=== PATIENT | female | born 1960 | race Caucasian/White ===

== ENCOUNTER 2016-11-08 00:29 | Emergency (ER) | payer MEDICAID ==
[~2016-11-08] VITALS: Ht 152.4 cm; Wt 37.3 kg
[~2016-11-08 00:29] MED LIST: BENA20 PO; FLUT1DIS3 IH; OLAN10TA3 PO; TRAZ-147 PO
[2016-11-08] MEDS ORDERED: AMLO-511 PO (00:40)
[2016-11-08] MEDS ORDERED: LISI-661 PO (00:40)
[2016-11-08] MEDS ORDERED: GABA-531 PO (00:40)
[2016-11-08] MEDS ORDERED: IPRAHFA IH (00:40)
[2016-11-08] MEDS ORDERED: FLUT1AER PO (00:40)
[2016-11-08 01:06] LABS: BASOPHILS % (AUTO) 0.4 % (0.0-2.0); EOSINOPHILS % (AUTO) 1.5 % (1.0-6.0); HEMATOCRIT 41.2 % (36-46); HEMOGLOBIN 13.3 g/dL (12.0-16.0); LYMPHOCYTES # (AUTO) 1.6 K/uL (1.0-4.8); LYMPHOCYTES % (AUTO) 19.2 % (22.0-44.0); MEAN CORPUSCULAR HEMOGLOBIN 30.6 pg (26.0-34.0); MEAN CORPUSCULAR HGB CONC 32.2 G/dL (31.0-37.0); MEAN CORPUSCULAR VOLUME 95 fL (80-100); MONOCYTES # (AUTO) 0.5 K/uL (0.1-1.0); NEUTROPHILS % (AUTO) 72.9 % (40.0-70.0); PLATELET COUNT (AUTO) 179 K/uL (150-450); RED BLOOD CELL COUNT(AUTO) 4.33 MIL/uL (4.00-5.20); RED CELL DISTRIBUTION WIDTH 14.1 % (11.5-14.5); WHITE BLOOD COUNT (AUTO) 8.3 K/uL (4.5-11.0)
[2016-11-08 01:16] LABS: ANION GAP 6 mmol/L (8-16); CARBON DIOXIDE 29 mmol/L (22-29); CHLORIDE 102 mmol/L (98-107); CREATININE 1.04 mg/dL (0.60-1.30); GLOMERULAR FILTR. RATE CALC 55 mL/min (>60); POTASSIUM 4.3 mmol/L (3.5-5.1); SODIUM SERUM 137 mmol/L (136-145); UREA NITROGEN, BLOOD 14 mg/dL (7-18)
[2016-11-08 01:21] LABS: ALANINE AMINOTRANSFERASE 18 U/L (12-78); ALBUMIN 3.9 g/dL (3.4-5.0); ASPARTATE AMINOTRANSFERASE 20 U/L (15-37); BILIRUBIN,TOTAL 0.4 mg/dL (0.1-1.0); TOTAL PROTEIN, SERUM 7.2 g/dL (6.4-8.2)
[2016-11-08 01:35] LABS: APPEARANCE,URINE CLEAR (CLEAR); GLUCOSE, URINE (UA) NEGATIVE (NEGATIVE); KETONES,URINE NEGATIVE (NEGATIVE); LEUKOCYTE ESTERASE ,URINE NEGATIVE (NEGATIVE); OCCULT BLOOD,URINE NEGATIVE (NEGATIVE); PH,URINE 7.5 (5.0-8.0); PROTEIN,URINE TRACE (NEGATIVE)
[2016-11-08 01:39] LABS: ADD UA MICROSCOPIC NO
[2016-11-08 03:19] VITALS: BP 117/72
== END 2016-11-08 03:20 | disposition home or self-care (01) ==
LOC: EMS 00:31
DX: R10.9 Unspecified abdominal pain (principal); J45.909 Unspecified asthma, uncomplicated; J44.9 Chronic obstructive pulmonary disease, unspecified; I10 Essential (primary) hypertension; Z91.048 Other nonmedicinal substance allergy status
CPT/HCPCS: 36415; 80053; 80307; 81003; 83690; 85025; 99284; G0480

== ENCOUNTER 2017-10-01 12:35 | Emergency (ER) | payer MEDICAID ==
[~2017-10-01] VITALS: Ht 152.4 cm; Wt 86.4 kg
[~2017-10-01 12:35] MED LIST changes: +AMLO-511 PO; -BENA20 PO; +FLUT1AER PO; +GABA-531 PO; +IPRAHFA IH; +LISI-661 PO; -OLAN10TA3 PO; -TRAZ-147 PO
[2017-10-01] MEDS ORDERED: ARIP2 PO (14:33)
[2017-10-01 14:37] LABS: BASOPHILS % (AUTO) 0.6 % (0.0-2.0); EOSINOPHILS % (AUTO) 0.6 % (1.0-6.0); HEMOGLOBIN 12.9 g/dL (12.0-16.0); LYMPHOCYTES # (AUTO) 2.4 K/uL (1.0-4.8); LYMPHOCYTES % (AUTO) 20.4 % (22.0-44.0); MEAN CORPUSCULAR HEMOGLOBIN 31.1 pg (26.0-34.0); MEAN CORPUSCULAR HGB CONC 33.8 G/dL (31.0-37.0); MEAN CORPUSCULAR VOLUME 92 fL (80-100); MONOCYTES # (AUTO) 0.6 K/uL (0.1-1.0); MONOCYTES % (AUTO) 4.7 % (2.0-9.0); NEUTROPHILS # (AUTO) 8.8 K/uL (1.8-7.7); NEUTROPHILS % (AUTO) 73.7 % (40.0-70.0); PLATELET COUNT (AUTO) 229 K/uL (150-450); RED BLOOD CELL COUNT(AUTO) 4.13 MIL/uL (4.00-5.20); RED CELL DISTRIBUTION WIDTH 13.4 % (11.5-14.5)
[2017-10-01] MEDS ORDERED: PredniSONE 20 MG TABLET PO ONE (14:45)
[2017-10-01] MEDS ORDERED: IPRATROPIUM BROMIDE 0.5 MG/2.5 ML NEB SOLUTION NEB ONE ×2 (14:45→16:00)
[2017-10-01] MEDS ORDERED: ALBUTEROL SULFATE 2.5 MG/0.5 ML NEB SOLUTION NEB ONE ×2 (14:45→16:00)
[2017-10-01] MEDS ORDERED: ACETAMINOPHEN 325 MG TABLET PO ONE (14:45)
[2017-10-01 14:53] LABS: AMPHET/METH SCREEN,URINE NEGATIVE (NEGATIVE); BARBITURATE SCREEN, URINE NEGATIVE (NEGATIVE); BENZODIAZEPINES SCREEN,URINE NEGATIVE (NEGATIVE); CANNABINOID SCREEN,URINE NEGATIVE (NEGATIVE); COCAINE SCREEN,URINE NEGATIVE (NEGATIVE); METHADONE SCREEN, URINE NEGATIVE (NEGATIVE); OPIATE SCREEN,URINE NEGATIVE (NEGATIVE)
[2017-10-01 14:54] LABS: CREATININE 1.21 mg/dL (0.60-1.30); POTASSIUM 3.8 mmol/L (3.5-5.1)
[2017-10-01 14:55] LABS: PHENCYCLIDINE SCREEN,URINE NEGATIVE (NEGATIVE)
[2017-10-01 15:00] LABS: ALBUMIN 3.6 g/dL (3.4-5.0); BILIRUBIN,TOTAL 0.3 mg/dL (0.1-1.0); TOTAL PROTEIN, SERUM 7.6 g/dL (6.4-8.2)
[2017-10-01] MEDS ORDERED: HYDROCHLOROTHIAZIDE 25 MG TABLET PO ONE (15:00)
[2017-10-01] MEDS ORDERED: 0.9% SODIUM CHLORIDE 5 ML NEB SOLUTION NEB ONE ×2 (15:03→15:56)
[2017-10-01 15:40] VITALS: BP 118/72
== END 2017-10-01 17:44 | disposition left against medical advice (07) ==
LOC: EMS 12:40
DX: J44.1 Chronic obstructive pulmonary disease with (acute) exacerbation (principal); J45.909 Unspecified asthma, uncomplicated; I10 Essential (primary) hypertension
CPT/HCPCS: 36415; 71045; 80053; 80307; 83880; 84484; 85025; 93005; 94640; 99285; G0480; J7512; J7613

== ENCOUNTER 2017-11-24 16:40 | Emergency (ER) | payer MEDICAID ==
[~2017-11-24] VITALS: Ht 152.4 cm; Wt 40.9 kg
[~2017-11-24 16:40] MED LIST changes: -AMLO-511 PO; +ARIP2 PO; -FLUT1AER PO; -FLUT1DIS3 IH; -GABA-531 PO; -IPRAHFA IH; -LISI-661 PO
[2017-11-24] MEDS ORDERED: LISI-661 PO (16:51)
[2017-11-24] MEDS ORDERED: ALBU8.5H8 IH (16:51)
[2017-11-24] MEDS ORDERED: IPRAHFA IH (16:51)
[2017-11-24] MEDS ORDERED: ALBUTEROL SULFATE 2.5 MG/0.5 ML NEB SOLUTION NEB ONE ×2 (17:30→19:00)
[2017-11-24] MEDS ORDERED: MethylPREDNISolone SOD SUCC 125 MG/2 ML VIAL IM ONE (17:30)
[2017-11-24] MEDS ORDERED: 0.9% SODIUM CHLORIDE 5 ML NEB SOLUTION NEB ONE (19:15)
[2017-11-24 19:52] VITALS: BP 170/95
== END 2017-11-24 19:59 | disposition home or self-care (01) ==
LOC: EMS 16:42
DX: J44.9 Chronic obstructive pulmonary disease, unspecified (principal); F17.210 Nicotine dependence, cigarettes, uncomplicated; F20.9 Schizophrenia, unspecified; I10 Essential (primary) hypertension
CPT/HCPCS: 71046; 94640; 96372; 99284; 99406; J2930; J7613

== ENCOUNTER 2017-12-04 09:29 | Emergency (ER) | payer MEDICAID ==
[~2017-12-04] VITALS: Ht 152.4 cm; Wt 40.9 kg
[~2017-12-04 09:29] MED LIST changes: +ALBU8.5H8 IH; -ARIP2 PO; +IPRAHFA IH; +LISI-661 PO
[2017-12-04] MEDS ORDERED: ALBUTEROL SULFATE HFA 90 MCG/PUFF 8 GM INHALER IH ONE (10:30)
[2017-12-04 11:01] VITALS: BP 148/82
== END 2017-12-04 11:05 | disposition home or self-care (01) ==
LOC: EMS 09:30
DX: Z76.0 Encounter for issue of repeat prescription (principal); J45.909 Unspecified asthma, uncomplicated; J44.9 Chronic obstructive pulmonary disease, unspecified; I10 Essential (primary) hypertension; F17.210 Nicotine dependence, cigarettes, uncomplicated
CPT/HCPCS: 94640; 99283; 99406; J3535

== ENCOUNTER 2017-12-14 13:25 | Emergency (ER) | payer MEDICAID ==
[~2017-12-14] VITALS: Ht 152.4 cm; Wt 41.0 kg
[2017-12-14] MEDS ORDERED: SODIUM CHLORIDE 0.9% 1,000 ML IV ONE ×2 (14:11)
[2017-12-14] MEDS ORDERED: KETOROLAC TROMETHAMINE 30 MG/ML VIAL IVP ONE (14:15)
[2017-12-14] MEDS ORDERED: METOCLOPRAMIDE HCL 5 MG/ML 2 ML VIAL IVP ONE (14:15)
[2017-12-14] MEDS ORDERED: DiphenhydrAMINE HCL 50 MG/ML VIAL IVP ONE (14:15)
[2017-12-14] MEDS ORDERED: IBUPROFEN 600 MG TABLET PO ONE (14:45)
[2017-12-14] MEDS ORDERED: LISINOPRIL 10 MG TABLET PO ONE (14:45)
[2017-12-14] MEDS ORDERED: CloNIDine HCL 0.1 MG TABLET PO ONE (14:45)
[2017-12-14 16:43] VITALS: BP 162/92
== END 2017-12-14 16:46 | disposition home or self-care (01) ==
LOC: EMS 13:25
DX: R51 Headache (principal); I10 Essential (primary) hypertension; J44.9 Chronic obstructive pulmonary disease, unspecified; J45.909 Unspecified asthma, uncomplicated; F17.210 Nicotine dependence, cigarettes, uncomplicated; Z76.0 Encounter for issue of repeat prescription
CPT/HCPCS: 99284; 99406; J7030; J1200; J1885; J2765